=== PATIENT | female | born 1975 | race Caucasian/White ===

== ENCOUNTER 2017-11-11 09:31 | Observation (INO) | payer MEDICAID, SELFPAY ==
[2017-11-11 10:32] LABS: #Lymphocytes 0.8 thou/uL (1.20-3.40); #Monocytes 0.3 thou/uL (0.11-0.59); #Neutrophils 1.6 thou/uL (1.40-6.50); %Basophils 1.3 % (0.0-1.0); %Lymphocytes 27.8 % (21.0-51.0); %Monocytes 12.5 % (0.0-10.0); Hematocrit 36.2 % (36.0-47.0); Mean Platelet Volume 9.3 fL (7.4-10.4); Red Blood Cell (RBC) Count 4.39 mill/uL (4.20-5.40); White Blood Cell (WBC) Count 2.8 thou/uL (4.8-10.8)
[2017-11-11 10:51] LABS: ALT (SGPT) 30 U/L (8-55); AST (SGOT) 41 U/L (5-34); Alkaline Phosphatase 58 U/L (40-150); Anion Gap 13 mmol/L (10-20); BUN (Urea Nitrogen) 13 mg/dL (7.0-18.7); Bilirubin, Total 0.2 mg/dL (0.2-1.2); CK (CPK) 585 U/L (29-168); Calc. Creatinine Clearance 0 mL/min (70-130); Calcium 8.3 mg/dL (7.8-10.44); Carbon Dioxide 23 mmol/L (22-29); Chloride 107 mmol/L (98-107); Estimated GFR-MDRD Greater than 90; Globulin 2.9 g/dL (2.4-3.5); Protein, Total 6.3 g/dL (6.0-8.3)
[2017-11-11] MEDS ORDERED: Ketorolac Tromethamine 30 MG/ML VIAL ONE (10:53)
[2017-11-11 10:55] LABS: Troponin I Less than 0.010 ng/mL (< 0.028)
[2017-11-11] MEDS ORDERED: Azithromycin 500 MG in Sodium Chloride 0.9% 250 ML 250 ML IVPB ONE (11:00)
--- NOTE | 2017-11-11 11:27 | RAD ---
PORTABLE CHEST: History Chest pain. COMPARISON: 01/31/17. FINDINGS: The lungs are clear. No infiltrate. Heart and mediastinum unremarkable. Vasculature within normal range. IMPRESSION: No acute abnormality. POS: [facility]
[2017-11-11 11:49] LABS: Bilirubin Negative (Negative); Blood, Urine Large (Negative); Glucose, Urine (Dipstick) Negative (Negative); Ketone, Urine 40 mg/dL (Negative); Nitrite Negative (Negative); Protein, Urine (Dipstick) 30 mg/dL (Neg-Trace); Urobilinogen 0.2 mg/dL (0.2-1.0)
[2017-11-11 11:51] LABS: Bacteria/HPF Rare-Few HPF (None Seen); Hyaline Casts/LPF 0-3 HYALINE CAST LPF (0-3 Hyaline); RBC/HPF GREATER THAN 50-TNTC HPF (0-3); Squamous Epithelial 0-3 HPF (0-3)
--- NOTE | 2017-11-11 12:00 | CT ---
CTA OF THE THORAX WITH IV CONTRAST AND 3D REFORMATTED IMAGING: INDICATION: Chest pain. FINDINGS: No central or segmental pulmonary embolus is evident. There are patchy areas of opacity within the l eft lower lobe which can be seen with subsegmental volume loss. The gallbladder is surgically absent . No acute osseous abnormality is evident. IMPRESSION: 1. No central or segmental pulmonary embolus demonstrated. 2. Patchy opacity within the left lower lobe most suspicious for subsegmental volume loss. 3. Cholecystectomy. POS: [facility]
[2017-11-11] MEDS ORDERED: Ondansetron HCl/PF 4 MG/2 ML Vial ONE (12:11)
[2017-11-11] MEDS ORDERED: Sodium Chloride 0.9% 1,000 ML IV SCH (13:20)
[2017-11-11] MEDS ORDERED: PROVENTIL INHALER 6.7 G (200 INHALATIONS) INH PRN (16:21)
[2017-11-11] MEDS ORDERED: diphenhydrAMINE 12.5 MG/5 ML UDCUP PO PRN (16:21)
[2017-11-11] MEDS ORDERED: hydrALAZINE 20 MG/ML VIAL SLOW IVP PRN (16:21)
[2017-11-11] MEDS ORDERED: Ondansetron HCl/PF 4 MG/2 ML Vial IVP PRN (16:21)
[2017-11-11] MEDS ORDERED: Acetaminophen 325 MG TAB PO PRN (16:21)
[2017-11-11] MEDS ORDERED: cefTRIAXone\\ROCEPHIN 1 GM in Sodium Chloride 0.9% 100 ML IVPB SCH (16:30)
[2017-11-11] MEDS ORDERED: cefTRIAXone\\ROCEPHIN 1 GM, Syringe 0.4 ML in Sterile Water 9.6 ML SLOW IVP SCH (17:00)
[2017-11-11] MEDS: HYDROcodone/Acetaminophen 5/325 mg Tablet PO PRN ×2 (17:01→22:27)
[2017-11-11] MEDS: Benzonatate 100 MG CAP PO PRN ×2 (17:25→22:38)
[2017-11-11] MEDS ORDERED: ISOVUE-370 76%-LOCM 1 ML ONE (17:46)
[2017-11-11 20:20] VITALS: BMI 47.0
--- NOTE | 2017-11-11 20:46 | HP ---
PRIMARY CARE PHYSICIAN: Through the [facility]. CHIEF COMPLAINT: Shortness of breath and cough and chest pain for the last few days. HISTORY OF PRESENT ILLNESS: Ms. Mancia is a pleasant 42-year-old female that has a history of asthm a, also has a history of recent endometrial biopsy, which was inconclusive. She actually seems like her symptoms started about 7 to 10 days ago. She says that she was riding around with her adopted von martinezer who had been sick with flu-like symptoms and then she began coughing and feeling congested and "bad." She says that she went to visit her who was out of town and then when she got back, this is when things got really bad. She started having cold sweats and chills as well as breaking ou t into a fever. She also was complaining of some productive cough. She went and bought some [employer] over the counter and she says she got worse. She felt sick to her stomach and could not ke ep anything down. She also started having pains in her chest in her side and was having trouble isra thing and for this reason, she came to the ER for evaluation. In the ER, she had a CT angiogram perf ormed, it was negative for PE, but did show a possible patchy infiltrate in the left lower lobe versu s atelectasis and she is being placed in observation for this. REVIEW OF SYSTEMS: Constitutional: She has had subjective fever and chills. No night sweats, no we ight loss. She has had decreased appetite. HEENT: She has had some headaches off and on as well as a sore throat. No rhinorrhea, no neck pain, no adenopathy. Pulmonary: No hemoptysis, but she has had the cough, which has been productive and chest pain with coughing. Gastrointestinal: She has gilbert d some abdominal pain as well as nausea, vomiting, but no diarrhea. Genitourinary: No urinary frequ ency, hematuria, no hesitancy. Neurologic: No focal weakness, numbness, no seizures. Psychiatric: No symptoms of anxiety or depression. Skin and integument: No skin changes. No rash. PAST MEDICAL HISTORY: Significant for asthma, migraines. PAST SURGICAL HISTORY: She has had a cholecystectomy and tonsillectomy. ALLERGIES: ROBITUSSIN and TAPE. SOCIAL HISTORY: She is engaged. She has no biological children. She is a smoker. She smokes about half a pack a day for 20 years. Occasionally drinks. FAMILY HISTORY: Significant for breast cancer, ovarian cancer as well as prostate cancer, hypertensi on, and diabetes. CURRENT MEDICATIONS: Include Benadryl as needed for sleep and breathing as well as an inhaler and ir on and potassium supplements. PHYSICAL EXAMINATION: GENERAL: She is alert and oriented. She appears to be in no acute distress. HEENT: Pupils are equal, round, and reactive. Extraocular muscles are intact. Her sclerae are anic teric. Throat: No erythema, no exudates. NECK: No adenopathy, no bruits. LUNGS: She has got rhonchi bilaterally throughout much of her lung field. There is no specific rale s; however, and no wheezing. CARDIOVASCULAR: She has a normal S1, S2. I do not appreciate an S3 or S4. No murmurs, clicks, no r ubs. ABDOMEN: Obese, it is soft. She did have some firmness in the middle abdominal area, but no discret e mass. There is no rebound or guarding. EXTREMITIES: There is no clubbing, cyanosis, no edema. NEUROLOGICAL: The exam is nonfocal. LABORATORY RESULTS: White blood cell count 2.8, hemoglobin 11.4, hematocrit is 36.2, platelet count is 213. Sodium 139, potassium 3.6, chloride is 107, CO2 is 23, BUN of 13, creatinine 0.7, glucose wa s 89. ASSESSMENT AND PLAN: This is a pleasant 42-year-old female that is being admitted for early pneumoni a, which is community acquired. She also has a history of an inconclusive uterine or endometrial bio psy for what appears to be menorrhagia. She will be started on empiric IV antibiotics to cover for c ommunity acquired pathogens and this will include Rocephin and azithromycin. She has already receive d some fluid resuscitation in the ER and therefore we can Hep-Lock the IV fluids and continue her inh aler as needed and reassess her in the a.m. We will also give the OB hospitalist a call and see whet her or not it is possible to do the follow up endometrial biopsy while she is here in the hospital si nce she is uninsured and has essentially been lost to follow up for about the past 9 months.
[2017-11-11] MEDS: Docusate 100 MG CAP PO SCH (21:17)
[2017-11-11] MEDS: Famotidine 20 MG TAB PO SCH (21:17)
[2017-11-12] MEDS: HYDROcodone/Acetaminophen 5/325 mg Tablet PO PRN ×2 (04:22→12:07)
[2017-11-12] MEDS: Benzonatate 100 MG CAP PO PRN ×2 (04:23→12:02)
[2017-11-12 06:35] LABS: #Eosinphils 0.1 thou/uL (0.0-0.7); #Monocytes 0.2 thou/uL (0.11-0.59); #Neutrophils 1.3 thou/uL (1.40-6.50); %Basophils 0.2 % (0.0-1.0); %Lymphocytes 38.1 % (21.0-51.0); %Monocytes 6.7 % (0.0-10.0); Hematocrit 34.5 % (36.0-47.0); Mean Platelet Volume 9.7 fL (7.4-10.4); Red Blood Cell (RBC) Count 4.12 mill/uL (4.20-5.40); White Blood Cell (WBC) Count 2.5 thou/uL (4.8-10.8)
[2017-11-12 06:50] LABS: Anion Gap 13 mmol/L (10-20); BUN (Urea Nitrogen) 13 mg/dL (7.0-18.7); Calc. Creatinine Clearance 181 mL/min (70-130); Calcium 8.4 mg/dL (7.8-10.44); Carbon Dioxide 22 mmol/L (22-29); Chloride 108 mmol/L (98-107); Estimated GFR-MDRD Greater than 90
[2017-11-12] MEDS: Docusate 100 MG CAP PO SCH (08:06)
[2017-11-12] MEDS: Famotidine 20 MG TAB PO SCH (08:06)
[2017-11-12] MEDS ORDERED: Enoxaparin Sodium 40 MG/0.4 ML SYRINGE SC SCH (09:00)
[2017-11-12 11:47] VITALS: BP 128/71; TEMP 97.9
[2017-11-12] MEDS ORDERED: Azithromycin 500 MG in Sodium Chloride 0.9% 250 ML 250 ML IVPB SCH (12:00)
--- NOTE | 2017-11-12 14:04 | PDOC.PN ---
- Subjective Encounter Start Date: 11/12/17 Encounter Start Time: 14:02 was seen today in follow-up. She says she feels about the same. no new complaints. - Objective Resuscitation Status: Resuscitation Status FULL:Full Resuscitation MAR Reviewed: Yes Vital Signs & Weight: Vital Signs (12 hours) Temp Pulse Pulse Pulse Pulse Pulse Resp 11/12/17 11:46 97.9 F 84 20 11/12/17 09:44 82 11/12/17 08:45 84 84 86 89 11/12/17 08:00 98.6 F 86 20 11/12/17 07:40 98.6 F 86 20 11/12/17 03:58 98.2 F 87 16 BP BP BP BP BP BP Pulse Ox 11/12/17 11:46 128/71 98 11/12/17 09:44 137/76 11/12/17 08:45 127/60 152/69 H 140/65 145/84 H 11/12/17 08:00 145/66 H 96 11/12/17 07:40 145/66 H 96 11/12/17 03:58 115/72 96 Weight Admit Weight 8.212 oz Weight 232 lb 12.8 oz I&O: 11/11/17 11/12/17 11/13/17 06:59 06:59 06:59 Intake Total 1735.5 Balance 1735.5 Result Diagrams: 11/12/17 06:05 11/12/17 06:05 Phys Exam - Physical Examination HEENT: PERRLA Respiratory: no wheezing, no rales, no rhonchi, clear to auscultation bilateral Cardiovascular: RRR, no significant murmur, no rub Gastrointestinal: soft, non-tender, positive bowel sounds Musculoskeletal: no edema Dx/Plan (1) Pneumonia, community acquired Code(s): J18.9 - PNEUMONIA, UNSPECIFIED ORGANISM Status: Acute (2) Tobacco abuse Code(s): Z72.0 - TOBACCO USE Status: Acute (3) Obesity, morbid, BMI 40.0-49.9 Code(s): E66.01 - MORBID (SEVERE) OBESITY DUE TO EXCESS CALORIES Status: Acute - Plan * Pneumonia- patient is clinically stable- she does not have fever, and her respiratory status is stable * Menorrhagia- She was seen by CLINICAL NURSING INTERN, and the Endometrial biopsy was done * She is stable for discharge home and continued outpatient follow-up.
--- NOTE | 2017-11-12 14:08 | OP ---
DATE OF PROCEDURE: 11/12/2017 PREOPERATIVE DIAGNOSES: Abnormal uterine bleeding. POSTOPERATIVE DIAGNOSES: Abnormal uterine bleeding. PROCEDURE: Endometrial biopsy. SURGEON: Dr. Neo Plummer ANESTHESIA: None. SPECIMENS: Endometrial curettings. COMPLICATIONS: None. COUNTS: Correct. ESTIMATED BLOOD LOSS: Less than 50 mL. PROCEDURE: Ms. Aysha Mancia after discussion of the purpose and benefits of the endometrial biopsy, the patient agreed to proceed. She was placed in dorsal lithotomy position. With the aid of a spec ulum cervix was identified with some difficulty, which was then prepped with Betadine. An endometria l pipette was then inserted into the cervical os and gently advanced to approximately 12 cm upon whic h the fundus was reached. Three consecutive pipettes were used for sampling the endometrial cavity g iven her previous insufficient diagnosis. The patient tolerated the procedure well. There was minim al bleeding at the conclusion of the procedure and the specimen was collected and sent to pathology f or review. The patient was escorted back to her room by her nurse to continue treatment for her curr ent reason for admission.
--- NOTE | 2017-11-12 14:18 | CON ---
DATE OF CONSULTATION: 11/12/2017 REFERRING PHYSICIAN: Dr. Michael Gamez CHIEF COMPLAINT: Menorrhagia with concerning features on CT and previous endometrial biopsy. HISTORY OF PRESENT ILLNESS: The patient is a 42-year-old female who was admitted to the hospital for pneumonia and upon review of her history, Dr. Gamez had noted the patient had an endometrial biopsy about a year ago with no followup. The biopsy was inconclusive and this coupled some concerning fin dings on CT. I was asked to come and reevaluated the patient and make recommendations to continued c are of this problem. The patient reports that she has for the last 10 years had irregular bleeding. She reports that she was told she had a mass of some kind about 10 years ago and had a followup exam that reported that everything was okay. She subsequently has been having what she reports is irregu lar bleeding and more recently having heavier bleeding with clots the size of quarters and sometimes slightly larger coming out. She reports that recently she had 3 adult briefs saturated in an hour. She reports that the bleeding is intermittent now and spontaneous. She reports she had a Pap smear a bout a year ago. PAST MEDICAL HISTORY: Asthma, currently being treated for pneumonia and migraines. PAST SURGICAL HISTORY: Cholecystectomy, tonsillectomy. ALLERGIES: ROBITUSSIN AND TAPE. SOCIAL HISTORY: She is nulliparous. She is a smoker, smoking about one-half pack per day and drinks alcohol on occasion. She reports a wine cooler every now and again. FAMILY HISTORY: Reportedly significant for breast cancer, ovarian cancer, prostate cancer, high bloo d pressure and diabetes. CURRENT MEDICATIONS: Benadryl, an inhaler, iron and potassium supplements. During this admission, thelma holt is currently on azithromycin and Rocephin. She is also on Lovenox daily for deep venous throm bosis prophylaxis, hydralazine p.r.n. for breakthrough elevated blood pressures and hydrocodone for p ain. REVIEW OF SYSTEMS: Per HPI. PHYSICAL EXAMINATION: VITAL SIGNS: Blood pressure is 128/71, temperature 97.9, pulse of 84, respiratory rate 20, satting 9 8% on room air. GENERAL: She appears to be in no acute distress. She is alert and oriented, cooperative and pleasan t to interact with. HEENT: Head is normocephalic, atraumatic. ABDOMEN: Soft and obese. PELVIC: Vulva without masses, lesions or erythema. There is a very small amount of blood on her sancho lt brief pad. Vagina is moist, her cervix is very anterior with some difficulty bringing into view w ith a speculum. The cervix appears to be normal. There are no lesions or erythema on the cervix, ut erus sounded to approximately 12 cm. Old endometrial biopsy reports from 02/01/2017 demonstrates minute detached endometrial glandular fra gments without significant atypia within an extensive hemorrhagic background. A CT scan from the [facility] time period describes a uterus with marked interval enlargement since 2010 was very heterogenous en dometrium as well as some papillary projections of enhancement. This also suggests an endometrial ma lignancy. The serosa of the uterus appears to be intact. There is super lateral displacement of the left ovary and right ovary. This mass causes some obstructive hydronephrosis on the right with mini mal hydronephrosis on the left. ASSESSMENT AND PLAN: The patient is a 42-year-old female with history of abnormal uterine bleeding a nd concerning features on a previous CT with an endometrial biopsy of nondiagnostic value. The patie nt is here for issues independent of these gynecologic findings. However, we have been asked to help establish a final diagnosis of Ms. Mancia. I discussed with Ms. Mancia the option of repeating an endometrial biopsy. She currently is not bleeding very much and may have better luck getting enough tissue for review. The patient is amenable to this. We will proceed to the exam room for this biop sy. I am going to also order a transvaginal ultrasound to better characterize her uterus and ovaries at this time. I stressed on the importance of outpatient followup and also the importance of verify ing that the contact information in our medical record system is accurate.
--- NOTE | 2017-11-12 18:32 | DIS ---
DATE OF ADMISSION: 11/11/2017 DATE OF DISCHARGE: 11/12/2017 PRIMARY CARE PHYSICIAN: Obtained through the [facility]. DISCHARGE DISPOSITION: Home. PRIMARY DISCHARGE DIAGNOSES: 1. Community-acquired pneumonia. 2. Menorrhagia. 3. Morbid obesity with a BMI of 47. 4. Tobacco abuse. DISCHARGE MEDICATIONS: Include azithromycin 250 mg p.o. daily, albuterol inhaler 2 puffs q.4 as need ed, Tessalon Perles 100 mg t.i.d., and Benadryl 12.5 mg q.6. CODE STATUS: FULL CODE. ALLERGIES: To GUAIFENESIN and TOMATOES. HOSPITAL COURSE: Ms. Mancia is a pleasant 42-year-old female, who presented to the emergency room w ith complaints of shortness of breath and cough for the last few days. The patient's symptoms had b een off and on for about 7 days. She was placed in observation and improved overnight with IV antibi otics. She also had mentioned that she has a history of menorrhagia in which she had an endometrial biopsy done several months ago, the findings of which were inconclusive and the patient had never kang e for followup. I called the [employer] hospitalist telephone lineworker and she graciously agreed to perform the rep eat endometrial biopsy while she was here in the hospital. He stated he will call her with the resul ts. In the meantime, she will follow up at the [facility]. She was also counseled on smoki ng cessation and the dangers of smoking and tobacco use. Instructed to continue close outpatient fol lowup at [facility]. She was also seen by case management with regards to aid in prescription assi stance and other resources.
== END 2017-11-12 16:42 | disposition home or self-care (01) ==
LOC: ERS 09:31 → ONC 12:38
PROVIDERS: ADMIT Internal Medicine; ATTEND Internal Medicine
PROC: 0UDB7ZX Extraction of Endometrium, Via Natural or Artificial Opening, Diagnostic (ICD-10-PCS; principal; 2017-11-12)
DX: J18.9 Pneumonia, unspecified organism (principal); N85.02 Endometrial intraepithelial neoplasia [EIN]; N92.0 Excessive and frequent menstruation with regular cycle; F17.210 Nicotine dependence, cigarettes, uncomplicated; G43.909 Migraine, unspecified, not intractable, without status migrainosus; J45.909 Unspecified asthma, uncomplicated; E66.01 Morbid (severe) obesity due to excess calories; Z68.42 Body mass index [BMI] 45.0-49.9, adult; Z91.018 Allergy to other foods; Z88.8 Allergy status to other drugs, medicaments and biological substances; Z90.49 Acquired absence of other specified parts of digestive tract; Z90.89 Acquired absence of other organs; Z80.41 Family history of malignant neoplasm of ovary; Z80.3 Family history of malignant neoplasm of breast; Z83.3 Family history of diabetes mellitus; Z82.49 Family history of ischemic heart disease and other diseases of the circulatory system; Z79.899 Other long term (current) drug therapy
CPT/HCPCS: 36415; 71010; 71275; 80048; 80053; 81003; 81015; 82553; 84484; 85025; 87040; 87077; 87086; 88305; 90471; 90732; 93005; 96361; 96365; 96366; 96372; 96375; A4216; G0009; G0378; G8978-GP-CJ; G8979-GP-CJ; G8980-GP-CJ; G8987-GO-CI; G8988-GO-CI; G8989-GO-CI; J0456; J0696; J1650; J1885; J2405; J7050

== ENCOUNTER 2018-03-09 14:10 | Emergency (ER) | payer SELFPAY ==
[2018-03-09 15:03] LABS: #Eosinphils 0.2 thou/uL (0.0-0.7); #Lymphocytes 1.4 thou/uL (1.20-3.40); #Monocytes 0.4 thou/uL (0.11-0.59); #Neutrophils 3.5 thou/uL (1.40-6.50); %Basophils 0.8 % (0.0-1.0); %Eosinophils 3.7 % (0.0-10.0); %Lymphocytes 25.5 % (21.0-51.0); %Monocytes 7.5 % (0.0-10.0); %Neutrophils 62.5 % (42.0-75.0); Hemoglobin 11.4 g/dL (12.0-16.0); Mean Corpuscular HGB CONC 32.4 g/dL (32.0-36.0); Mean Corpuscular Hemoglobin 28.2 pg (27.0-31.0); Mean Corpuscular Volume 87.2 fl (81.0-99.0); Mean Platelet Volume 7.5 fL (7.4-10.4); Platelet Count 265 thou/uL (130-400); RBC Distribution Width 13.5 % (11.5-14.5); Red Blood Cell (RBC) Count 4.04 mill/uL (4.20-5.40); White Blood Cell (WBC) Count 5.6 thou/uL (4.8-10.8)
[2018-03-09 15:08] LABS: BHCG - Serum Negative (NEGATIVE); Pregs Control Background? CLEAR/WHITE (CLR/WHITE); Pregs Control Bar Appear? YES (CONTROL BAR)
[2018-03-09 15:24] LABS: ALT (SGPT) 18 U/L (8-55); AST (SGOT) 16 U/L (5-34); Albumin 3.5 g/dL (3.5-5.0); Alkaline Phosphatase 72 U/L (40-150); Anion Gap 10 mmol/L (10-20); BUN (Urea Nitrogen) 16 mg/dL (7.0-18.7); Bilirubin, Total Less than 0.2 mg/dL (0.2-1.2); Calc. Creatinine Clearance 0 mL/min (70-130); Calcium 8.6 mg/dL (7.8-10.44); Carbon Dioxide 26 mmol/L (22-29); Chloride 108 mmol/L (98-107); Estimated GFR-MDRD Greater than 90; Globulin 2.7 g/dL (2.4-3.5); Glucose 94 mg/dL (70-105); Protein, Total 6.2 g/dL (6.0-8.3); Sodium 140 mmol/L (136-145)
--- NOTE | 2018-03-09 15:35 | ULT ---
PELVIC ULTRASOUND: 03/09/18 HISTORY: Uterine mass since 2004. Heavy uterine bleeding. Multiple longitudinal and transverse images of the pelvis obtained using a multihertz curvilinear tra nsducer. Endovaginal turner machine could not be performed due to patient pain. Images demonstrate a massively distended uterus measuring 26.3 x 17.5 x 18.8 cm. The endometrium is e xtensively thickened. Areas measuring up to 13 cm in wall thickness. Endometrial malignancy is of hig h concern in this patient. The right and left ovary is not visualized due to displacement by uterus. IMPRESSION: Massively distended uterus with extensive endometrial thickening and debris. There are areas of blood flow within the endometrium highly concerning for malignancy. Gynecologic consultation recommended. POS: [facility]
[2018-03-09] MEDS ORDERED: ISOVUE-370 76%-LOCM 1 ML ONE (16:32)
--- NOTE | 2018-03-09 16:45 | CT ---
CT OF THE ABDOMEN AND PELVIS WITH CONTRAST: 03/09/18 COMPARISON: 01/31/17 HISTORY: History of endometrial cancer. Patient has been having a lot of vaginal bleeding. Lightheadedness. TECHNIQUE: Multiple contiguous axial images were obtained in a CT of the abdomen and pelvis with contrast. Coron al reformats were performed. FINDINGS: The patient is status post cholecystectomy. The uterus is enlarged and there is a large heterogeneous mass within the endometrial canal. This mass within the endometrial canal measures 17.5 x 14.0 x 12. 2 cm in size. This has enlarged compared to the prior examination. The heterogeneous mass appears to extend through the cervix and into the vagina. This extension into the vagina may be more prominent t smith on the prior examination. The liver, right kidney, adrenal glands, spleen, and pancreas are unremarkable. A small hypodensity i n the left kidney likely represents a cyst. A trace amount of free fluid is seen in the pelvis. The large and small bowel are unremarkable. The a ppendix is normal. No abdominal or pelvic lymphadenopathy are seen. The visualized inferior thorax and abdominal wall soft tissues are unremarkable. The bones are unrema rkable. IMPRESSION: 1. Enlarging intrauterine mass is consistent with the patient's diagnosis of endometrial cancer. 2. Left renal cyst. POS: [facility]
== END 2018-03-09 17:32 | disposition home or self-care (01) ==
LOC: ERS 14:10
DX: N85.8 Other specified noninflammatory disorders of uterus (principal); G43.909 Migraine, unspecified, not intractable, without status migrainosus; J45.909 Unspecified asthma, uncomplicated; D64.9 Anemia, unspecified; F17.210 Nicotine dependence, cigarettes, uncomplicated
CPT/HCPCS: 36415; 74177; 76856; 80053; 84703; 85025; 86850; 86900; 86901

== ENCOUNTER 2018-03-18 00:48 | Emergency (ER) | payer SELFPAY ==
[2018-03-18 01:42] LABS: #Basophils 0.1 thou/uL (0.0-0.2); #Eosinphils 0.3 thou/uL (0.0-0.7); #Lymphocytes 1.5 thou/uL (1.20-3.40); #Monocytes 0.5 thou/uL (0.11-0.59); #Neutrophils 4.2 thou/uL (1.40-6.50); %Basophils 0.9 % (0.0-1.0); %Eosinophils 4.1 % (0.0-10.0); %Lymphocytes 23.1 % (21.0-51.0); %Monocytes 7.8 % (0.0-10.0); %Neutrophils 64.1 % (42.0-75.0); Hemoglobin 9.5 g/dL (12.0-16.0); Mean Corpuscular Hemoglobin 28.2 pg (27.0-31.0); Mean Corpuscular Volume 82.8 fl (81.0-99.0); Mean Platelet Volume 7.2 fL (7.4-10.4); Platelet Count 315 thou/uL (130-400); RBC Distribution Width 13.2 % (11.5-14.5); Red Blood Cell (RBC) Count 3.36 mill/uL (4.20-5.40); White Blood Cell (WBC) Count 6.5 thou/uL (4.8-10.8)
== END 2018-03-18 02:05 | disposition home or self-care (01) ==
LOC: ERS 00:48
DX: N93.8 Other specified abnormal uterine and vaginal bleeding (principal); N85.8 Other specified noninflammatory disorders of uterus; D64.9 Anemia, unspecified; F17.210 Nicotine dependence, cigarettes, uncomplicated; G43.909 Migraine, unspecified, not intractable, without status migrainosus; J45.909 Unspecified asthma, uncomplicated; Z79.899 Other long term (current) drug therapy; Z85.42 Personal history of malignant neoplasm of other parts of uterus; Z71.6 Tobacco abuse counseling
CPT/HCPCS: 85025; 99406

== ENCOUNTER 2018-04-21 14:23 | Emergency (ER) | payer SELFPAY ==
[~2018-04-21 14:23] MED LIST: ISOVUE-370 76%-LOCM 1 ML ONE
[2018-04-21] MEDS ORDERED: Ondansetron ODT 8 MG TAB ONE (14:43)
[2018-04-21] MEDS ORDERED: Morphine 4 MG/ML VIAL ONE ×2 (14:43→17:03)
[2018-04-21 15:17] LABS: #Basophils 0.1 thou/uL (0.0-0.2); #Eosinphils 0.2 thou/uL (0.0-0.7); #Lymphocytes 1.3 thou/uL (1.20-3.40); #Monocytes 0.4 thou/uL (0.11-0.59); #Neutrophils 4.3 thou/uL (1.40-6.50); %Basophils 0.9 % (0.0-1.0); %Eosinophils 2.8 % (0.0-10.0); %Lymphocytes 20.8 % (21.0-51.0); %Monocytes 6.5 % (0.0-10.0); Mean Corpuscular HGB CONC 32.4 g/dL (32.0-36.0); Mean Corpuscular Hemoglobin 25.4 pg (27.0-31.0); Mean Corpuscular Volume 78.5 fl (81.0-99.0); Mean Platelet Volume 7.7 fL (7.4-10.4); Platelet Count 319 thou/uL (130-400); RBC Distribution Width 17.2 % (11.5-14.5); Red Blood Cell (RBC) Count 3.53 mill/uL (4.20-5.40); White Blood Cell (WBC) Count 6.2 thou/uL (4.8-10.8)
[2018-04-21 15:51] LABS: ALT (SGPT) 15 U/L (8-55); AST (SGOT) 39 U/L (5-34); Albumin 3.5 g/dL (3.5-5.0); Alkaline Phosphatase 85 U/L (40-150); Anion Gap 13 mmol/L (10-20); BUN (Urea Nitrogen) 14 mg/dL (7.0-18.7); Bilirubin, Total 0.2 mg/dL (0.2-1.2); Calc. Creatinine Clearance 0 mL/min (70-130); Calcium 8.6 mg/dL (7.8-10.44); Carbon Dioxide 19 mmol/L (22-29); Chloride 112 mmol/L (98-107); Estimated GFR-MDRD Greater than 90; Globulin 3.7 g/dL (2.4-3.5); Glucose 106 mg/dL (70-105); Lipase 42 U/L (8-78); Potassium 5.1 mmol/L (3.5-5.1); Protein, Total 7.2 g/dL (6.0-8.3); Sodium 139 mmol/L (136-145)
--- NOTE | 2018-04-21 15:58 | CT ---
ABDOMEN CT WITH CONTRAST PELVIC CT WITH CONTRAST: COMPARISON: 03/09/18. HISTORY: Previous surgery. Pain. Hysterectomy. TECHNIQUE: Abdomen and pelvic CT are performed with IV contrast. Enteric contrast was not administered. Rich l reformatted images were submitted for interpretation. FINDINGS: Scarring/subsegmental atelectasis in the left lower lobe. Heart size is normal. No pericardial effusion. Descending thoracic aorta and abdominal aorta have a normal caliber. No periaortic fat stranding. Nonspecific periportal edema. The portal vein is pat ent. Gallbladder is surgically absent. Liver, spleen, pancreas, and adrenal glands have appropriate enhancement. Symmetric enhancement of the kidneys. No mesenteric mass, lymphadenopathy, free air, or free fluid. There is stranding of the ventral subc utaneous fat. No evidence of a drainable abscess in the soft tissues or within the peritoneal space. Limited evaluation of the alimentary canal with the lack of oral contrast. No evidence of bowel obst ruction. Ileocecal junction is normal. Normal-caliber appendix. Scattered fecal material in a nond istended, nondilated colon. PELVIC CT: Uterus is surgically absent. No pelvic mass, lymphadenopathy, free air, or free fluid. The urinary bladder is unremarkable. No lytic or blastic lesion in the osseous structures. Midline skin daryl are noted. IMPRESSION: 1. Postoperative changes compatible with recent hysterectomy. No evidence of abscess. 2. No evidence of bowel obstruction. 3. Scar/atelectasis in the left lower lobe. POS: [facility]
[2018-04-21 16:25] LABS: Bilirubin Negative (Negative); Blood, Urine Negative (Negative); Clarity CLEAR (Clear); Glucose, Urine (Dipstick) Negative (Negative); Leukocyte Negative (Negative); Nitrite Negative (Negative); Protein, Urine (Dipstick) Negative (Neg-Trace); Urobilinogen 0.2 mg/dL (0.2-1.0); pH, Urine 5.5 (5.0-9.0)
[2018-04-21 16:31] LABS: Specific Gravity, Urine 1.059 (1.002-1.036)
[2018-04-21] MEDS ORDERED: Mag-Al 1200 mg/1200 mg/30 ML UDCUP ONE (16:54)
[2018-04-21] MEDS ORDERED: Lidocaine Viscous Sol 2% 15 ml UD Cup ONE (16:54)
== END 2018-04-21 17:16 | disposition home or self-care (01) ==
LOC: ERS 14:23
DX: R10.30 Lower abdominal pain, unspecified (principal); D64.9 Anemia, unspecified; F17.210 Nicotine dependence, cigarettes, uncomplicated; G43.909 Migraine, unspecified, not intractable, without status migrainosus; J45.909 Unspecified asthma, uncomplicated; Z85.42 Personal history of malignant neoplasm of other parts of uterus
CPT/HCPCS: 36415; 74177; 80053; 81003; 83690; 85025; 96361; 96374; 96376; J2270

== ENCOUNTER 2018-05-06 17:41 | Emergency (ER) | payer SELFPAY ==
[2018-05-06 18:16] LABS: Bilirubin Negative (Negative); Blood, Urine Negative (Negative); Clarity CLEAR (Clear); Glucose, Urine (Dipstick) Negative (Negative); Leukocyte Negative (Negative); Nitrite Negative (Negative); Protein, Urine (Dipstick) Negative (Neg-Trace); Specific Gravity, Urine 1.028 (1.002-1.036); pH, Urine 5.5 (5.0-9.0)
[2018-05-06 18:44] LABS: Mean Corpuscular HGB CONC 32.6 g/dL (32.0-36.0); Mean Corpuscular Hemoglobin 24.2 pg (27.0-31.0); Mean Corpuscular Volume 74.1 fl (81.0-99.0); Mean Platelet Volume 10.2 fL (7.4-10.4); Platelet Count 190 thou/uL (130-400); Red Blood Cell (RBC) Count 4.13 mill/uL (4.20-5.40); White Blood Cell (WBC) Count 3.3 thou/uL (4.8-10.8)
[2018-05-06 18:58] LABS: ALT (SGPT) 17 U/L (8-55); AST (SGOT) 15 U/L (5-34); Alkaline Phosphatase 97 U/L (40-150); Anion Gap 15 mmol/L (10-20); BUN (Urea Nitrogen) 12 mg/dL (7.0-18.7); Bilirubin, Total 0.3 mg/dL (0.2-1.2); Calc. Creatinine Clearance 0 mL/min (70-130); Carbon Dioxide 22 mmol/L (22-29); Chloride 109 mmol/L (98-107); Estimated GFR-MDRD Greater than 90; Globulin 3.1 g/dL (2.4-3.5); Glucose 93 mg/dL (70-105); Lipase 31 U/L (8-78); Potassium 3.5 mmol/L (3.5-5.1); Protein, Total 7.1 g/dL (6.0-8.3); Sodium 142 mmol/L (136-145)
[2018-05-06 19:10] LABS: #Eosinphils 0.1 thou/uL (0.0-0.7); #Lymphocytes 0.7 thou/uL (1.20-3.40); #Monocytes 0.4 thou/uL (0.11-0.59); %Basophils 0.4 % (0.0-1.0); %Eosinophils 4.3 % (0.0-10.0); %Lymphocytes 22.3 % (21.0-51.0); %Monocytes 11.9 % (0.0-10.0); %Neutrophils 61.1 % (42.0-75.0); Anisocytosis SLIGHT = 6-15 cells (100X) (0-5/hpf); Hypochromia SLIGHT = 6-15 cells (100X) (0-5/hpf); MDiff Complete? YES; Microcytosis SLIGHT = 6-15 cells (100X) (0-5/hpf); Ovalocytes SLIGHT = 2-5 cells (100X) (0-1/hpf); PLT Morphology Comment Appears Adequate
[2018-05-06] MEDS ORDERED: Ketorolac Tromethamine 60 MG/2 ML VIAL ONE (19:12)
[2018-05-06] MEDS ORDERED: Acetaminophen/Codeine 30-300mg Tablet ONE ×2 (19:12→21:14)
[2018-05-06] MEDS ORDERED: Ondansetron ODT 4 MG TAB ONE (20:25)
[2018-05-08 01:46] LABS: Chlamydia by PCR Not Detected (NotDetected); GC by PCR Not Detected (NotDetected)
== END 2018-05-06 21:20 | disposition home or self-care (01) ==
LOC: ERS 17:41
DX: R10.33 Periumbilical pain (principal); G43.909 Migraine, unspecified, not intractable, without status migrainosus; J45.909 Unspecified asthma, uncomplicated; F17.210 Nicotine dependence, cigarettes, uncomplicated; Z79.899 Other long term (current) drug therapy; Z71.6 Tobacco abuse counseling
CPT/HCPCS: 36415; 80053; 81003; 83690; 85025; 87480; 87491; 87510; 87591; 87660; 96372; 99406; J1885; Q0162

== ENCOUNTER 2019-09-23 15:40 | Outpatient (CLI) | payer BC ==
--- NOTE | 2019-09-23 15:53 | RAD ---
EXAM: Chest PA and lateral: HISTORY: Smoking history. COMPARISON: 11/11/2017 FINDINGS: Heart: Normal cardiac silhouette Aorta: Unremarkable Pulmonary vessels: Normal Costophrenic angles: Costophrenic angles are clear. Lungs: Questionable 1 cm left perihilar nodule. Pneumothorax: No pneumothorax Osseous structures: No osseous abnormalities IMPRESSION: Questionable 1 cm left perihilar nodule Code lung nodule Recommendation: Chest CT with contrast
== END 2019-09-23 15:41 | disposition home or self-care (01) ==
LOC: BICRAD 15:40
PROVIDERS: ATTEND Family Medicine
DX: F17.200 Nicotine dependence, unspecified, uncomplicated (principal)
CPT/HCPCS: 71046

== ENCOUNTER 2020-04-01 20:50 | Emergency (ER) | payer SELFPAY | END 2020-04-02 00:39 | disposition home or self-care (01) | LOC: ERS 20:50 | DX: J02.9 Acute pharyngitis, unspecified (principal); D64.9 Anemia, unspecified; J45.909 Unspecified asthma, uncomplicated; F32.9 Major depressive disorder, single episode, unspecified; F43.10 Post-traumatic stress disorder, unspecified; F17.210 Nicotine dependence, cigarettes, uncomplicated; Z79.51 Long term (current) use of inhaled steroids | CPT/HCPCS: 99282 ==

== ENCOUNTER 2020-07-29 12:56 | Emergency (ER) | payer OTHER, SELFPAY ==
[2020-07-30 13:53] LABS: SARS-CoV-2 MS2 Positive; SARS-CoV-2 N Gene Negative; SARS-CoV-2 S Gene Negative; SARS-CoV-2 by NAA Not Detected (NotDetected); SARS-CoV-2 orf1ab Negative
== END 2020-07-29 13:35 | disposition home or self-care (01) ==
LOC: ERS 12:56
DX: Z20.828 Contact with and (suspected) exposure to other viral communicable diseases (principal); G43.909 Migraine, unspecified, not intractable, without status migrainosus; J45.909 Unspecified asthma, uncomplicated; D64.9 Anemia, unspecified; Z79.899 Other long term (current) drug therapy
CPT/HCPCS: 87635; 99283; U0003